=== PATIENT | female | born 1965 ===

== ENCOUNTER 2024-12-03 11:19 | Emergency (ER) | payer OTHER ==
[~2024-12-03] VITALS: Ht 154.9 cm; Wt 59.0 kg
[2024-12-03] MEDS ORDERED: Ampicillin Sod/Sulbactam Sod 3 GM in NS 100 ML IV ONE (13:00)
[2024-12-03] MEDS ORDERED: Percocet 5-3251 EACH PO (13:44)
[2024-12-03] MEDS ORDERED: IBUP800 PO (13:44)
[2024-12-03] MEDS ORDERED: AMOCLA875 PO (13:44)
== END 2024-12-03 13:57 | disposition home or self-care (01) ==
LOC: ER 11:19
DX: S71.152A Open bite, left thigh, initial encounter (principal); S31.151A Open bite of abdominal wall, left upper quadrant without penetration into peritoneal cavity, initial encounter; S41.152A Open bite of left upper arm, initial encounter; L03.311 Cellulitis of abdominal wall; Z23 Encounter for immunization; W54.0XXA Bitten by dog, initial encounter
CPT/HCPCS: 74160; 90471; 90715; 96365-59; 99283-25; J0295; Q9967